=== PATIENT | male | born 1995 | race Caucasian/White ===

== ENCOUNTER 2017-08-30 12:30 | Emergency (ER) | payer BC, OTHER ==
[~2017-08-30] VITALS: Ht 182.9 cm; Wt 89.4 kg
--- OUTSIDE RECORDS SUMMARY | ~2017-08-30 | XMS | Clinical Summary ---
Demographics + + + | Address | [address] | | | [place] [address] | + + + | Home Phone | | + + + | Preferred Language | Unknown | + + + | Marital Status | Single | + + + | Gnosticist Affiliation | Unknown | + + + | Race | Unknown | + + + | Ethnic Group | Unknown | + + + Author + + + | Author | [facility] | + + + | Organization | [facility] | + + + | Address | Unknown | + + + | Phone | Unavailable | + + + Support + + +---------+ + | Name | Relationship | Address | Phone | + + +---------+ + | Mackenzie Staples | ECON | Unknown | | + + +---------+ + Care Team Providers + +------+ + | Care Weight Loss Centre Manager Name | Role | Phone | + +------+ + | Tila Menjivar PA-C | PP | | + +------+ + Allergies Not on File Current Medications + + +-------+---------+------+------+-------+ | Prescription | Sig. | Disp. | Refills | Star | End | Statu | | | | | | t | Date | s | | | | | | Date | | | + + +-------+---------+------+------+-------+ | albuterol | Inhale 2 puffs into | | | | | Activ | | (PROVENTIL | the lungs as needed | | | | | e | | HFA;VENTOLIN HFA) | for Wheezing. | | | | | | | 108 (90 Base) | | | | | | | | MCG/ACT inhaler | | | | | | | + + +-------+---------+------+------+-------+ | aspirin 81 MG | Take 81 mg by mouth | | | | | Activ | | tablet | daily. | | | | | e | + + +-------+---------+------+------+-------+ | ibuprofen (ADVIL) | Take 200 mg by mouth | | | | | Activ | | 200 MG tablet | as needed for Pain. | | | | | e | + + +-------+---------+------+------+-------+ | busPIRone (BUSPAR) | Take 5 mg by mouth 2 | | | | | Activ | | 5 MG tablet | (two) times daily. | | | | | e | + + +-------+---------+------+------+-------+ | metoprolol | Take 25 mg by mouth | | | | | Activ | | (TOPROL-XL) 25 MG 24 | daily. | | | | | e | | hr tablet | | | | | | | + + +-------+---------+------+------+-------+ Active Problems + + + | Problem | Noted Date | + + + | Paroxysmal atrial fibrillation (HCC) | 10/14/2016 | + + + Family History + +------+--------+ + | Relation | Name | Status | Comments | + +------+--------+ + | Brother | | Alive | | + +------+--------+ + | Father | | Alive | | + +------+--------+ + | Mother | | Alive | | + +------+--------+ + Social History + +-------+ +--------+------+ | Tobacco Use | Types | Packs/Day | Years | Date | | | | | Used | | + +-------+ +--------+------+ | Never Smoker | | | | | + +-------+ +--------+------+ + +---+---+---+ | Smokeless Tobacco: | | | | | Former User | | | | + +---+---+---+ + + +---------+ + | Alcohol Use | Drinks/We | oz/Week | Comments | | | ek | | | + + +---------+ + | Yes | | | weekends | + + +---------+ + + + + | Sex Assigned at | Date Recorded | | | | + + + | Not on file | | + + + Last Filed Vital Signs + + + + | Vital Sign | Reading | Time Taken | + + + + | Blood Pressure | 118/76 | 10/14/2016 3:52 PM PDT | + + + + | Pulse | 60 | 10/14/2016 3:52 PM PDT | + + + + | Temperature | - | - | + + + + | Respiratory Rate | - | - | + + + + | Oxygen Saturation | 100% | 10/14/2016 3:52 PM PDT | + + + + | Inhaled Oxygen | - | - | | Concentration | | | + + + + | Weight | 84.3 kg (185 lb 12.8 | 10/14/2016 3:52 PM PDT | | | oz) | | + + + + | Height | 182.9 cm (6') | 10/14/2016 3:52 PM PDT | + + + + | Body Mass Index | 25.2 | 10/14/2016 3:52 PM PDT | + + + + Plan of Treatment + + + + + | Health Maintenance | Due Date | Last Done | Comments | + + + + + | Vaccine: | | | | | Dtap/Tdap/Td (1 - | 3 | | | | Tdap) | | | | + + + + + | Vaccine: Influenza | | | | | (Season Ended) | 8 | | | + + + + + Results Not on filefrom Last 3 Months Insurance +---------+--------+ +------+-------+ + | Payer | Benefi | Subscriber | Type | Phone | Address | | | t Plan | ID | | | | | | / | | | | | | | Group | | | | | +---------+--------+ +------+-------+ + | PREMERA | PREMER | xxxxxxxxxxx | | | [place] [id number] | | | A BLUE | x | | | [place] | | | CARD | | | | [phone] | +---------+--------+ +------+-------+ + | CIGNA | CIGNA | xxxxxxxxx | | | | | | - | | | | | | | [place] | | | | | | | [place] | | | | | +---------+--------+ +------+-------+ + + +--------+ +--------+ + + | Guarantor Name | Accoun | Relation to | Date | Phone | Billing Address | | | t Type | Patient | of | | | | | | | | | | + +--------+ +--------+ + + | SERAFIN ROSSI | Person | Self [birth year] | Home: | [address] | | | al/Fam | | 1994 | [phone] [place] | | | angel | | | [phone] | + +--------+ +--------+ + +"
--- OUTSIDE RECORDS SUMMARY | ~2017-08-30 | XMS | Clinical Summary ---
Demographics + + + | Address | [address] | | | [place] [address] | + + + | Home Phone | | + + + | Preferred Language | Unknown | + + + | Marital Status | Single | + + + | Latter Day Affiliation | Unknown | + + + | Race | Unknown | + + + | Ethnic Group | Unknown | + + + Author + + + | Author | [facility] | + + + | Organization | [facility] | + + + | Address | Unknown | + + + | Phone | Unavailable | + + + Support + + +---------+ + | Name | Relationship | Address | Phone | + + +---------+ + | Mackenzie Staples | ECON | Unknown | | + + +---------+ + Care Team Providers + +------+ + | Care In Flight Refueling System Repairer Name | Role | Phone | + [...] | [phone] | | | [place] [id number] | | | A BLUE | x | | | [place] | | | CARD | | | | [phone] | +---------+--------+ +------+-------+ + | CIGNA | [...] | Self | [birth year] | Home: | [address] | | | al/Fam | | 1994 | [phone] | [place] | | | angel | | | [phone] | + +--------+ +--------+ + +"
[~2017-08-30 12:30] MED LIST: ASPIRIN325 MG PO; CELEXA20 MG PO; NORCO 5-325 TA1 EACH PO; PROAIR HFA8.5 GM INH
[2017-08-30] MEDS ORDERED: CLARITIN5 MG PO (12:41)
[2017-08-30] MEDS ORDERED: ZOFRAN ODT4 MG PO (13:59)
--- NOTE | 2017-08-30 22:00 | EKG ---
[facility] [address] [facility] [place], [place] [address] Signed Normal sinus rhythm Normal ECG Confirmed by MARISA HERNANDES MD ([id number]) on 08/30/2017 10:00:05 PM Electronically Signed By: MARISA HERNANDES MD 08/30/172199 PATIENT NAME: LEIGHA ROSSI Electrocardiogram DATE OF : [birth year] PHYSICIAN: MARSIA HERNANDES MD REPORT #: [id number] REPORT IS CONFIDENTIAL AND NOT TO BE RELEASED WITHOUT AUTHORIZATION
== END 2017-08-30 14:23 | disposition short-term general hospital (02) ==
LOC: ED 12:30
DX: F10.20 Alcohol dependence, uncomplicated (principal); R07.89 Other chest pain; F41.9 Anxiety disorder, unspecified; Z79.899 Other long term (current) drug therapy
CPT/HCPCS: 71046; 80053; 83690; 84484; 85025; 93005; 93010; 96361; 96374; 99285; J7030

== ENCOUNTER 2022-10-01 09:53 | Day surgery (SDC) | payer OTHER ==
[~2022-10-01 09:53] MED LIST changes: +CLARITIN5 MG PO; +ZOFRAN ODT4 MG PO
[2022-10-01 10:29] VITALS: BP 141/74
[2022-10-01] MEDS ORDERED: QVAR REDIHALE10.6 GM INH (10:34)
[2022-10-01] MEDS ORDERED: IBUPROFEN400 MG PO (10:35)
--- NOTE | 2022-10-01 12:31 | NUR ---
CHECKED ON PATIENT, SITTING UP IN BED AND NO NEEDS AT THIS TIME. CALL LIGHT WITHIN REACH.
[2022-10-01 14:42] VITALS: BP 149/85
--- NOTE | 2022-10-01 14:53 | NUR ---
PATIENT ALERT AND ORIENTED BACK TO ROOM 3. DENIES NAUSEA. SITTING UP IN BED AND READY TO GET DRESSED AND DISCHARGE.
--- NOTE | 2022-10-01 15:14 | NUR ---
1510: PT DRESSED AND READY TO DC, DENIES PAIN IN LEFT CHEST AND STATES HE DOES NOT WANT ANY NARCOTIC MEDICATION AND PLANS TO USE TYLENOL AND IBUPROFEN FOR PAIN MANAGEMENT. DC INSTRUCTIONS PRESENTED VERBALLY AND WRITTEN. PT AMBULATES FROM RM 3 TO PERSONAL VEHICLE HOME.
--- NOTE | 2022-10-02 05:53 | OR ---
[facility] [address] [place], [place] [address] Signed DATE OF OPERATION: 10/01/2022 SURGEON: Litzy Blackwell MD PREOPERATIVE DIAGNOSIS: Subcutaneous mass, left chest wall (4 x 3 cm). POSTOPERATIVE DIAGNOSIS: Subcutaneous mass, left chest wall (4 x 3 cm). PROCEDURE: Excision of left chest wall subcutaneous mass. ESTIMATED BLOOD LOSS: None. 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 He has developed a mass over his left ribcage. It is now up to 4 x 3 cm. He said it has been very difficult at work. He said he has decided to have it removed. He went to his primary care provider. He was asked to see me as the local general surgeon with respect to the above. I explained to Serafin clinically this appears to be a lipoma. It requires an oblique incision over the area to remove it completely for definitive treatment and pathologic review. We had reviewed the expected intraop and postop course. There is risk including, but not limited to bleeding, infection, scarring, change in contour of the skin as well as recurrent lipomas in the same or other locations. He told me that he has a fear of being put to sleep. He had his wisdom teeth out and his clavicle was repaired under local anesthetic. He said he would be more than happy to have this removed under local anesthetic. I told him he is a little bit large to do here in the office, we should do it over at the OR with better lighting and retraction and so forth. He had expressed understanding and wished to proceed. DESCRIPTION OF PROCEDURE: I met with Serafin in our preop area. We were able to identify the lesion on the left chest wall and marked that appropriately. After this, he was taken into the operating room and placed in the supine position. We had started an IV and had given him some Ancef and subcutaneous Lovenox. SCDs were utilized. He was then prepped and draped in the usual sterile fashion. We injected local anesthetic around, underneath and over the lesion. We made an oblique incision over the lesion and carried it down and around the lesion with the help of the cautery. Clinically, this appears to be a standard lipoma. Electronically Signed By: LITZY BLACKWELL MD 10/02/22 0553 PATIENT NAME: SERAFIN ROSSI OPERATIVE REPORT DATE OF : [birth year] REPORT #: [id number] PHYSICIAN: LITZY BLACKWELL MD PCP: TILA BRAGA REPORT IS CONFIDENTIAL AND NOT TO BE RELEASED WITHOUT AUTHORIZATION [facility] [address] [place], [place] [address] Signed The wound was irrigated and suctioned out until clear. We brought the dermis back together with interrupted 3-0 subcuticular and Monocryl sutures. The skin edges were reapproximated with a running 5-0 fast absorbing plain gut suture. Dry gauze and tape were then applied. Serafin tolerated the procedure quite well. . Litzy Blackwell MD ALB/MODL /[id number] cc: MD Tila Quintanilla PA Copies: LITZY BLACKWELL MD, LINDA PA ~ Electronically Signed By: LITZY BLACKWELL MD 10/02/22 0553 PATIENT NAME: SERAFIN ROSSI OPERATIVE REPORT DATE OF : [birth year] REPORT #: [id number] PHYSICIAN: LITYZ BLACKWELL MD PCP: TILA BRAGA REPORT IS CONFIDENTIAL AND NOT TO BE RELEASED WITHOUT AUTHORIZATION
--- NOTE | 2022-10-06 11:58 | PATH ---
[facility] [address] [place], [place] [address] Signed SPECIMEN(S): A LEFT CHEST WALL SPECIMEN SOURCE: A. LEFT CHEST WALL CLINICAL HISTORY: Left chest wall lipoma/subcutaneous mass. FINAL PATHOLOGIC DIAGNOSIS: Left chest wall: - W[place]rop lobulated adipose tissue consistent with lipoma. JVR:smd:C2NR MICROSCOPIC EXAMINATION: Histologic sections of all submitted blocks are examined by light microscopy. These findings, together with the gross examination, support the pathologic diagnosis. GROSS DESCRIPTION: The specimen, labeled and designated "Wanous, left chest wall," is received in formalin and consists of one yellow-stout, soft, smooth fibroadipose tissue fragment that measures 6.0 x 4.0 x 1.9 cm. Specimen is inked. Sectioning through the specimen reveals regular adipose tissue surrounded with a thin capsule. Animal Nutritionist sections are submitted in (A1-A2). JS (under the direct supervision of a pathologist) The Gross Description was prepared using a voice recognition system. The report was reviewed for accuracy; however, sound-alike word errors, addition and/or deletions may occur. If there is any question about this report, please contact Client Services. PERFORMING LABORATORY: The technical component was performed by [facility], [address] [place] [id number] (CLIA# [id number]). Professional interpretation was performed by [facility] - [facility], [address] [place] [id number] (CLIA#: [id number]). Diagnostician: Keron Nam MD Pathologist Electronically Signed 10/06/2022 PATIENT NAME: LEIGHA ROSSI PATHOLOGY DATE OF : [birth year] REPORT #: [id number] PHYSICIAN: ERVIN PATHOLOGY PCP: KALE BRAGA REPORT IS CONFIDENTIAL AND NOT TO BE RELEASED WITHOUT AUTHORIZATION [address] [address] Signed Copies: ~ PATIENT NAME: LEIGHA ROSSI PATHOLOGY DATE OF : [birth year] REPORT #: [id number] PHYSICIAN: ERVIN PATHOLOGY PCP: KALE BRAGA REPORT IS CONFIDENTIAL AND NOT TO BE RELEASED WITHOUT AUTHORIZATION
== END 2022-10-01 15:10 | disposition home or self-care (01) ==
LOC: DS 09:53
PROVIDERS: ATTEND Colon & Rectal Surgery
PROC: 0JB60ZZ Excision of Chest Subcutaneous Tissue and Fascia, Open Approach (ICD-10-PCS; principal; 2022-10-01 11:40)
DX: D17.1 Benign lipomatous neoplasm of skin and subcutaneous tissue of trunk (principal); J45.909 Unspecified asthma, uncomplicated; Z79.899 Other long term (current) drug therapy
CPT/HCPCS: 80048; 85025; J0690; J1644; J7121

== ENCOUNTER 2024-10-04 16:38 | Observation (INO) | payer OTHER ==
[~2024-10-04] VITALS: Ht 182.9 cm; Wt 100.5 kg
[~2024-10-04 16:38] MED LIST changes: +IBUPROFEN400 MG PO; +QVAR REDIHALE10.6 GM INH; +SEVOFLURANE 250 ML BTL INH ONE; +VENLAFAXINE H37.5 MG PO
[2024-10-04 17:35] LABS: BASOPHILS 0.7 % (0.2-1.2); EOSINOPHILS 3.4 % (0.8-7.0); HEMOGLOBIN 15.7 g/dL (13.7-17.5); LYMPHOCYTES 24.2 % (21.8-53.1); MCH 30.8 PG (25.7-32.2); MCHC 34.9 g/dL (32.3-36.5); MCV 88.2 fL (79.0-92.2); MONOCYTES 8.8 % (5.3-12.2); NEUTROPHILS 62.7 % (34.0-67.9); PLATELET COUNT 255 K/uL (163-337)
[2024-10-04 17:39] LABS: INR 1.02 (0.80-1.30); PROTIME 12.8 Sec (11.2-14.2)
[2024-10-04 17:45] LABS: ALBUMIN 4.1 g/dL (3.4-5.0); ALBUMIN/GLOBULIN RATIO 0.98 (1.1-2.4); ANION GAP 13.3 (7-21); BILIRUBIN, TOTAL 0.6 mg/dL (0.2-1.0); BUN/CREATININE RATIO 14.81 (6.0-28.6); CALCIUM 9.3 mg/dL (8.5-10.1); CREATININE, SERUM 1.08 mg/dL (0.70-1.30); POTASSIUM 4.3 mmol/L (3.5-5.1); PROTEIN, TOTAL 8.3 g/dL (6.4-8.2)
[2024-10-04] MEDS ORDERED: CEFTRIAXONE SODIUM 2 GM in SODIUM CHLORIDE 0.9% 100 ML IV ONE (18:00)
[2024-10-04] MEDS ORDERED: PROCHLORPERAZINE EDISYLATE 10 MG/2 ML VIAL IV PRN (18:00)
[2024-10-04] MEDS ORDERED: ACETAMINOPHEN 325 MG TAB PO PRN (18:00)
[2024-10-04] MEDS ORDERED: ondansetron HCL 4 MG/2 ML VIAL IV PRN (18:00)
[2024-10-04] MEDS ORDERED: ACETAMINOPHEN 650 MG SUPP PR PRN (18:00)
[2024-10-04] MEDS ORDERED: DEXTROSE 5% - LACTATED RINGERS 1,000 ML IV SCH (18:00)
[2024-10-04] MEDS ORDERED: PANTOPRAZOLE SODIUM 40 MG/10 ML VIAL IV SCH (18:07)
[2024-10-04] MEDS ORDERED: fentaNYL citrate 100 MCG/2 ML VIAL ONE ×3 (18:35→19:37)
[2024-10-04] MEDS ORDERED: propofoL 200 MG/20 ML VIAL ONE ×2 (18:35→19:05)
[2024-10-04] MEDS ORDERED: DEXAMETHASONE SOD PHOS 4 MG/ML VIAL ONE ×2 (18:36)
[2024-10-04] MEDS ORDERED: ondansetron HCL 4 MG/2 ML VIAL ONE (18:36)
[2024-10-04] MEDS ORDERED: KETOROLAC TROMETHAMINE 30 MG/ML VIAL ONE (18:36)
[2024-10-04] MEDS ORDERED: ROCURONIUM BROMIDE 50 MG/5 ML SYR ONE (18:36)
[2024-10-04] MEDS ORDERED: LIDOCAINE HCL 2% 5 ML SDV ONE (18:36)
--- NOTE | 2024-10-04 19:15 | NUR ---
PATIENT OFF THE FLOOR IN SURGERY AT THIS TIME.
[2024-10-04] MEDS ORDERED: SUGAMMADEX SODIUM 200 MG/2 ML ML ONE (19:45)
--- NOTE | 2024-10-04 20:33 | NUR ---
PATIENT IN ROOM FROM SURGERY. REPORT RECEIVED FROM HORACIO CRAFT.
[2024-10-04 20:38] VITALS: BP 130/74
[2024-10-04] MEDS ORDERED: ALBUTEROL SULFATE 0.042% 1.25 MG/3 ML VIAL INH PRN (20:45)
[2024-10-04] MEDS ORDERED: MORPHINE SULFATE 4 MG/ML VIAL IV PRN (20:45)
[2024-10-04] MEDS ORDERED: OXYCODONE/APAP 5/325 TAB PO PRN (20:45)
--- NOTE | 2024-10-04 21:22 | NUR ---
10/04/242121 Sary Zaragoza 1959- PT ARRIVES TO PACU FROM OR VIA BED. PT ON 8L OF O2 VIA MASK W/OPA IN PLACE. RESPIRATIONS EVEN AND UNLABORED, NO SIGNS OF DISTRESS. PT NOT RESPONSIVE TO TACTILE STIMULI AT THIS TIME. REPORT RECEIVED FROM YAMIL DIAZ AND ZUNILDA LEONARD. 2000- PT REACHES FOR FACE, PT FOLLOWS INSTRUCTIONS TO OPEN MOUTH FOR OPA REMOVAL. PT ORIENTED TO ROOM AT THIS TIME AND FOLLOWS VERBAL INSTRUCTIONS. RESPIRATIONS EVEN AND UNLABORED, NO SIGNS OF DISTRESS. 2002- PT TITRATED TO RA AND ASKING APPROPRIATE QUESTIONS AT THIS TIME. PT APPEARS COMFORTABLE, BUT SHAKING IN LEGS. WARM BLANKETS PROVIDED. PT RESPIRATIONS EVEN AND UNLABORED, NO SIGNS OF DISTRESS. HOB SLIGHTLY ELEVATED TO 15 DEGREES. 2005- PT RATES PAIN 3/10 AND TOLERABLE AT THIS TIME IN LLQ. PT EDUCATED ABOUT USE OF GAS FOR LAPAROSCOPIC PROCEDURE AND WHERE LAP SITES ARE LOCATED. PT STATES VERBAL UNDERSTANDING AT THIS TIME. 2009- DR. DOWNS AT BEDSIDE TO DISCUSS PROCEDURE W/PT. ALL QUESTIONS ANSWERED AT THIS TIME. SHAKING HAS SUBSIDED AND PT CONVERSING WITHOUT DIFFICULTY AT THIS TIME. PT STATES PARCHED, BUT DENIES ICE CHIPS AT THIS TIME. 2019- PT STATES PAIN 5/10 AND REPORTS PRESSURE IN LLQ, PT STATES PAIN TOLERABLE AT THIS TIME. PT MOTHER CALLED AND UPDATED THAT PT WILL BE HEADED TO ROOM 115 BY ZUNILDA LEONARD. ALL BELONGINGS TRANSFERRED ON PT BED TO UNIT. 2039- BED IN LOWEST POSITION, CALL LIGHT WITHIN REACH, CPOX IN PLACE. REPORT GIVEN TO CHRISTOPHER LEONARD. SURGICAL SITES VISUALIZED W/CHRISTOPHER LEONARD. PT IS A&O AND ASKS QUESTIONS APPROPRIATELY DURING REPORT. MOTHER IS AT BEDSIDE. ALL BELONGINGS IN PT POSSESSION AT THIS TIME. PT REPORTS NO FURTHER QUESTIONS OR NEEDS.
[2024-10-04 21:32] VITALS: BP 142/85
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
--- NOTE | 2024-10-04 22:23 | NUR ---
PATIENT REPORTING SEVERE PAIN AFTER PAIN MEDICATION ADMINISTERED PER ORDERS. DR Liriano UPDATED DUE TO PATIENT PAIN NOT UNDER CONTROL. MD WITH VERBAL ORDERS FOR DILAUDID 1MG IV Q2 PRN. WITH NO FURTHER ORDERS AT THIS TIME. CALL ENDED.
[2024-10-04] MEDS ORDERED: HYDROmorphone HCL 1 MG/ML SYR IV PRN (22:30)
--- NOTE | 2024-10-04 22:36 | NUR ---
PATIENT MEDICATED PER EMAR. PATIENT WITHOUT FURTHER NEEDS AT THIS TIME. CALL LIGHT AND PERSONAL BELONGINGS ARE WITHIN REACH.
[2024-10-04 22:42] VITALS: BP 138/82
[2024-10-04 22:47] VITALS: BP 138/82
--- NOTE | 2024-10-04 23:00 | NUR ---
PATIENT REPORTS SOME RELIEF WITH PAIN AFTER LAST DOSE OF PAIN MEDICATION. PATIENT ABLE TO STAND AND AMBULATE. PATIENT DENIES ANY NAUSEA. PATIENT AMBULATED AROUND UNIT LOOP X2. PATIENT BACK IN BED AT THIS TIME. FRESH ICE WATER PROVIDED. PATIENT ABLE TO TOLERATE CRACKERS AND JELLO AND DENIES NAUSEA. PATIENT WITHOUT FURTHER NEEDS AT THIS TIME. CALL LIGHT AND PERSONAL BELONGINGS ARE WITHIN REACH.
[2024-10-04 23:47] VITALS: BP 133/71
[2024-10-04 23:48] VITALS: BP 133/71
--- NOTE | 2024-10-05 00:20 | NUR ---
PATIENT RESTING IN BED WITH HIS EYES CLOSED. EVEN AND UNLABORED RESPIRATIONS NOTED. CALL LIGHT AND PERSONAL BELONGINGS ARE WITHIN REACH. CPOX AT BEDSIDE.
--- NOTE | 2024-10-05 01:20 | NUR ---
PATIENT MEDICATED PER EMAR. PATIENT DENIES ANY NAUSEA AT THIS TIME. CPOX AT BEDSIDE. FRESH ICE WATER AND SANDWICH BOX PROVIDED. PATIENT WITHOUT FURTHER NEEDS AT THIS TIME. CALL LIGHT AND PERSONAL BELONGINGS ARE WITHIN REACH.
--- NOTE | 2024-10-05 03:31 | NUR ---
PATIENT RESTING IN BED AND STATES HE FEELS "GREAT" AND THAT PAIN IS MINIMAL AT THIS TIME WHILE HE IS RESTING IN BED. PATIENT DENIES THE NEEDS TO URINATE YET, BUT STATES "I PROBABLY WILL HAVE TO ONCE I GET UP AND MOVING AROUND AGAIN". PATIENT REPORTS HE WILL CALL WHEN HE IS READY TO GET UP. PATIENT WITHOUT ANY NEEDS AT THIS TIME. CALL LIGHT AND PERSONAL BELONGINGS ARE WITHIN REACH. CPOX AT BEDSIDE.
--- NOTE | 2024-10-05 05:30 | NUR ---
PATIENT REPORTING HIS "PAIN IS COMING BACK" AND RATES IT 4/10. PATIENT MEDICATED PER EMAR. FRESH COFFEE PROVIDED. VITAL SIGNS TAKEN AND ARE STABLE. LAP SITES ASSESSED AND ARE WITHOUT CHANGE. BOWEL TONES ARE ACTIVE IN ALL 4 QUADRANTS. PATIENT WITHOUT FURTHER NEEDS AT THIS TIME. CALL LIGHT AND PERSONAL BELONGINGS ARE WITHIN REACH.
[2024-10-05 05:38] VITALS: BP 133/79
[2024-10-05 05:40] VITALS: BP 133/79
--- NOTE | 2024-10-05 07:20 | NUR ---
REPORT RECEIVED FROM HORACIO WHITE. PATIENT SITTING UP IN BED AWAKE AND ALERT. REPORTS HIS INCISIONAL PAIN IS CURRENTLY A 4/, DENIES INTERVENTIONS. NO REQUESTS, CALL LIGHT AND PERSONAL BELONGINGS IN REACH.
--- NOTE | 2024-10-05 08:38 | NUR ---
PATIENT IS COMPLAINING OF ABD/INCISIONAL PAIN, 5/10. PRN PAIN MEDICATION AND ICE PACK SUPPLIED. ASSESSMENT COMPLETE. PATIENT IS IN GOOD SPIRITS THIS MORNING AND LOOKING FORWARD TO GOING HOME. ALL 4 LAP SITES ARE C/D/I WITH GLUE STILL IN PLACE. BOWEL TONES ARE ACTIVE. PATIENT REPORTS HAVING FLATULENCE BUT ALSO VERBALIZES UNDERSTANDING OF AIR IN HIS ABDOMEN DURING SURGERY AND IT MOVING EVEN BEHIND HIS SHOULDER BLADES. PATIENT VERBALIZES UNDERSTANDING THAT MOVEMENT AND TIME WILL ASSIST IN HIS BODY REABSORBING THIS AIR. PATIENT DENIES NAUSEA, REPORTS HE WAS VERY EXCITED TO EAT AFTER SURGERY LAST NIGHT. BREAKFAST TRAY ARRIVES. PATIENT SITS ON EDGE OF BED AND BEGINS TO EAT. NO OTHER REQUESTS, CALL LIGHT AND PERSONAL BELONGINGS IN REACH.
[2024-10-05 08:58] VITALS: BP 122/73
--- NOTE | 2024-10-05 09:03 | NUR ---
PATIENT LAYING IN BED. VITALS AND I&OS WERE DONE. CALL LIGHT IN REACH NO FUTHER NEEDS AT THIS TIME.
--- NOTE | 2024-10-05 09:10 | NUR ---
Spoke with Serafin and he is pleasant. States he is getting ready to leave. Waiting on to complete orders. Pt denies any needs and will go home with his fiance. States he is feel really well. Does have some gas, but feels this will resolve if he walks. Pt is active and does not use any DME. Home today with girl friend. Pt denies any needs.
[2024-10-05] MEDS ORDERED: OXYCODONE-ACET1 EAC1 PO (09:49)
--- NOTE | 2024-10-05 09:49 | NUR ---
UR CLINICAL REVIEW: [facility] REVIEW MEETS OBS FOR LAP APPY. PROCEDURE COMPLETE LATE 10/04/24 [employer] OBS 10/04/24 @ 1808 ORDER MATCHES REG NO AUTH REQUIRED FOR OBS STAY PER JODY GL PLAN TO DC TODAY IF TOLERATING REGULAR DIET 10/06/24
[2024-10-05 10:11] VITALS: BP 122/73
--- NOTE | 2024-10-07 15:36 | PATH ---
[facility] [address] [place], [place] [address] Signed SPECIMEN(S): A APPENDIX SPECIMEN SOURCE: A. APPENDIX CLINICAL HISTORY: Acute appendicitis FINAL PATHOLOGIC DIAGNOSIS: Appendix, appendectomy: - Acute appendicitis, periappendicitis and serositis. JVR:clv MICROSCOPIC EXAMINATION: Histologic sections of all submitted blocks are examined by light microscopy. These findings, together with the gross examination, support the pathologic diagnosis. GROSS DESCRIPTION: The specimen, labeled and designated "Indu Rossi, appendix per requisition," is received in formalin and consists of Specimen: Appendix with mesoappendix. Dimensions: 9.1 x 1.4 x 1.3 cm. Serosa: Reddy-pink to brown with areas of purulent material present.. Defect: Not grossly identified. Inking: Staple line is inked Blue. Mucosa: Reddy-pink and pinpoint to slightly dilated. Fecalith: There is a fecalith measuring 0.7 cm in greatest dimension near the distal tip.. Additional: None. Fabrication Welder sections are submitted in (A1). AA (under the direct supervision of a pathologist) The Gross Description was prepared using a voice recognition system. The report was reviewed for accuracy; however, sound-alike word errors, addition and/or deletions may occur. If there is any question about this report, please contact Client Services. PERFORMING LABORATORY: Technical component was performed by [facility], [address] [place] [id number] (CLIA# [id number]). Professional interpretation was performed by [facility] - [place], [address] PATIENT NAME: LEIGHA ROSSI PATHOLOGY DATE OF : [birth year] REPORT #: [id number] PHYSICIAN: ERVIN PATHOLOGY PCP: KALE BRAGA REPORT IS CONFIDENTIAL AND NOT TO BE RELEASED WITHOUT AUTHORIZATION [facility] [address] [place], [place] [address], [place] [address] (CLIA#: [id number]). Diagnostician: Keron Nam MD Pathologist Electronically Signed 10/07/2024 Copies: ~ PATIENT NAME: LEIGHA ROSSI PATHOLOGY DATE OF : [birth year] REPORT #: [id number] PHYSICIAN: ERVIN PATHOLOGY PCP: KALE BRAGA REPORT IS CONFIDENTIAL AND NOT TO BE RELEASED WITHOUT AUTHORIZATION
== END 2024-10-05 11:15 | disposition home or self-care (01) ==
LOC: ED 16:38 → MS 16:40
PROVIDERS: Emergency Medicine; ADMIT Surgery; ATTEND Surgery
PROC: 0DTJ0ZZ Resection of Appendix, Open Approach (ICD-10-PCS; principal; 2024-10-04 19:00)
DX: K35.33 Acute appendicitis with perforation, localized peritonitis, and gangrene, with abscess (principal); F10.20 Alcohol dependence, uncomplicated; I48.91 Unspecified atrial fibrillation; J45.909 Unspecified asthma, uncomplicated; Z79.899 Other long term (current) drug therapy
CPT/HCPCS: 00840; 36415; 80053; 85025; 85610; 96374; 99284-25; A9270; J0696; J1100; J1171; J1885; J2003; J2270; J2405; J2470; J2704; J3010; J3490

== ENCOUNTER 2025-02-07 08:37 | Emergency (ER) | payer OTHER ==
[~2025-02-07] VITALS: Ht 182.9 cm; Wt 102.0 kg
[~2025-02-07 08:37] MED LIST changes: +OXYCODONE-ACET1 EAC1 PO; -SEVOFLURANE 250 ML BTL INH ONE
[2025-02-07] MEDS ORDERED: NON-FORMULARY MEDICATION ORDER SUB-Q ONE (09:30)
[2025-02-07 09:49] VITALS: BP 138/80
== END 2025-02-07 09:53 | disposition home or self-care (01) ==
LOC: ED 08:37
DX: Z29.14 Encounter for prophylactic rabies immune globulin (principal); Z20.3 Contact with and (suspected) exposure to rabies; J45.909 Unspecified asthma, uncomplicated; Z79.899 Other long term (current) drug therapy
CPT/HCPCS: 90675; 96372; 99283

== ENCOUNTER 2025-02-10 04:40 | Emergency (ER) | payer OTHER ==
[~2025-02-10] VITALS: Ht 182.9 cm; Wt 100.0 kg
--- OUTSIDE RECORDS SUMMARY | 2025-02-10 04:45 | XMS ---
PreManage Notification: LEIGHA ROSSI Security Epic Professional Events No recent Security Events currently on file CRITERIA MET - [facility] - 2 Visits in 30 Days CARE PROVIDERS There are no care providers on record at this time. Marty has no Care Guidelines for this patient. Taye VISIT COUNT (12 MO.) [address] [facility] TOTAL 3 NOTE: Visits indicate total known visits. ED/C VISIT TRACKING (12 MO.) 02/10/2025 04:[address] [facility] OR TYPE: Emergency COMPLAINT: - INJECTION 02/07/2025 08:39 [facility] TYPE: Emergency COMPLAINT: - WOUND CHECK DIAGNOSES: - Contact with and (suspected) exposure to rabies - Encounter for prophylactic rabies immune globin - Other usp (current) drug therapy - Unspecified asthma, uncomplicated 10/04/2024 16:39 [facility] TYPE: Emergency COMPLAINT: - APPENDIX ISSURE REFERRED BY [facility] INPATIENT VISIT TRACKING (12 MO.) 10/04/2024 16:40 [facility] TYPE: Observation COMPLAINT: - APPENDICITIS DIAGNOSES: - Acute appendicitis with perforation, localized peritonitis, and gangrene, with abscess - Alcohol dependence, uncomplicated - Other usp (current) drug therapy - Unspecified acute appendicitis - Unspecified asthma, uncomplicated - Unspecified atrial fibrillation [email or web address]
[2025-02-10] MEDS ORDERED: RABIES IMMUNE GLOBULIN 300 UNIT/ML IM ONE ×2 (05:00→06:00)
[2025-02-10] MEDS ORDERED: RABIES IMMUNE GLOBULIN 300 UNIT/ML ONE (05:23)
[2025-02-10] MEDS ORDERED: Rabies Immune Globulin/Pf 1,500 UNIT/5 ML SYR ONE (05:23)
[2025-02-10 06:13] VITALS: BP 150/80
== END 2025-02-10 06:21 | disposition home or self-care (01) ==
LOC: ED 04:40
DX: Z29.14 Encounter for prophylactic rabies immune globulin (principal); Z23 Encounter for immunization; Z20.3 Contact with and (suspected) exposure to rabies
CPT/HCPCS: 90675; 96372; 99283